=== PATIENT | male | born 1980 | race Two or more races ===

== ENCOUNTER 2016-09-09 10:51 | Emergency (ER) | payer SELFPAY ==
[2016-09-09] MEDS ORDERED: AMOX 875 MG/CLAV 125 MG 1 EACH TABLET ONE (11:43)
[2016-09-09] MEDS ORDERED: IBUPROFEN 600 MG TABLET ONE ×2 (11:43→11:52)
[2016-09-09] MEDS ORDERED: ACETAMINOPHEN 325 MG TABLET ONE ×2 (11:43→11:53)
== END 2016-09-09 12:14 | disposition home or self-care (01) ==
LOC: ED 10:51
DX: K08.89 Other specified disorders of teeth and supporting structures (principal); F17.210 Nicotine dependence, cigarettes, uncomplicated
CPT/HCPCS: 99283 ×2; A9270 ×3